=== PATIENT | female | born 1965 | race Caucasian/White ===

== ENCOUNTER → 2017-08-03 | Outpatient (CLI) | payer BC ==
[~2017-08-03] MED LIST: CYCL10TA9 PO; ETD300C PO; HYDR1TAB PO; LISI-552 PO; MELO15TA14 PO; METH4TAB PO
--- NOTE | 2017-08-06 22:01 | Diagnostic Imaging Report ---
Bilateral screening mammogram 2D views with tomosynthesis The current study was also evaluated with a Computer Aided Detection (CAD) system. Indication: Screening. No current complaints stated on the questionnaire. COMPARISON: 07/12/16. FINDINGS: The breasts are composed of scattered fibroglandular densities. There is no mass, architectural distortion or suspicious cluster of calcification. Allowing for technique and positional differences, no suspicious change is seen. IMPRESSION: No significant change. ACR BI-RADS Category 2: Benign findings. Result letter will be mailed to the patient. Note: At least 10% of breast cancer is not imaged by mammography. Dictated by: Dictated on workstation # [id number]
== END ==
LOC: RAD 08:21
PROVIDERS: ATTEND Registered Nurse
DX: Z12.31 Encounter for screening mammogram for malignant neoplasm of breast (principal)
CPT/HCPCS: 77067

== ENCOUNTER → 2019-08-08 | Outpatient (CLI) | payer BC ==
--- NOTE | 2019-08-11 09:35 | Diagnostic Imaging Report ---
INDICATION: Routine screening. Comparison is made with prior mammogram from 08/03/2017 and 07/12/2016. 2-D and 3-D bilateral screening mammography was performed with CAD. The current study was also evaluated with a Computer Aided Detection (CAD) system. 3-D tomosynthesis was also performed and reviewed. Scattered fibroglandular densities are identified bilaterally. The parenchymal pattern is stable. No spiculated mass or malignant appearing microcalcifications are seen. Axillae are unremarkable. IMPRESSION: No mammographic features suspicious for malignancy are identified. ACR BI-RADS Category 1: Negative. Result letter will be mailed to the patient. Note: At least 10% of breast cancer is not imaged by mammography. Dictated by: Dictated on workstation # [id number]
== END ==
LOC: RAD 09:19
PROVIDERS: ATTEND Registered Nurse
DX: Z12.31 Encounter for screening mammogram for malignant neoplasm of breast (principal)
CPT/HCPCS: 77067

== ENCOUNTER → 2020-05-31 | Outpatient (CLI) | payer BC ==
--- NOTE | 2020-05-31 14:52 | Diagnostic Imaging Report ---
PROCEDURE: MRI right joint lower extremity without contrast. TECHNIQUE: Multiplanar, multisequence non contrast-enhanced MRI of the right lower extremity was accomplished. INDICATION: Right ankle pain. COMPARISONS: None available. FINDINGS: TENDONS: The distal Achilles has moderate heterogeneous intensity thickening indicative of tendinopathy; however, there is no superimposed tear of the Achilles tendon and its distal insertion is intact. The peroneus longus and brevis tendons are normal. The posterior tibialis, flexor hallucis longus, and flexor digitorum longus are normal where visualized. LIGAMENTS: Anterior and posterior distal tibiofibular ligaments are intact. The anterior talofibular, calcaneofibular, and posterior talofibular ligaments are normal. Medial deltoid ligamentous complex is intact. Spring ligament is grossly intact. BONES AND CARTILAGE: No osteochondral lesion of the talar dome. No fracture or stress fracture. The articular cartilage of the tibiotalar and posterior subtalar joints are normal. Moderate degenerative changes at the navicular-cuneiform articulations with a prominent dorsal osteophyte arising from the navicular bone. SOFT TISSUES: No evidence of plantar fasciitis. No abnormal soft tissue scar/fibrosis within the tarsal canal/sinus tarsi or tarsal tunnel. No ankle joint effusion. A 12 x 9 mm cystic ganglion is located along the dorsal aspect of the navicular-cuneiform articulations. IMPRESSION: 1. Marked tendinopathy of the distal Achilles without superimposed tear. 2. 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 There is an associated 12 x 9 mm cystic ganglion along the dorsal aspect of the navicular-cuneiform articulations. Dictated by: Dictated on workstation # [id number]
== END ==
LOC: RAD 15:30
PROVIDERS: ATTEND Podiatrist Foot & Ankle Surgery
DX: M76.61 Achilles tendinitis, right leg (principal); M19.071 Primary osteoarthritis, right ankle and foot; M67.471 Ganglion, right ankle and foot
CPT/HCPCS: 73721

== ENCOUNTER → 2021-05-24 | Outpatient (CLI) | payer BC ==
[~2021-05-24] MED LIST changes: -LISI-552 PO; +LISI20TA26 PO
--- NOTE | 2021-05-24 10:21 | Diagnostic Imaging Report ---
INDICATION: Routine screening Comparison is made with prior mammogram 08/08/2019 and 08/03/2017. 2-D and 3-D bilateral screening mammography was performed with CAD. Scattered fibroglandular densities are identified bilaterally. Intraparenchymal lymph node in the outer left breast is stable. No mass or malignant-appearing microcalcifications are seen. Axillae are unremarkable. IMPRESSION: BI-RADS Category 2 No mammographic features suspicious for malignancy are identified. ACR BI-RADS Category 2: Benign findings. Result letter will be mailed to the patient. Note: At least 10% of breast cancer is not imaged by mammography. Dictated by: Dictated on workstation # [id number]
--- NOTE | 2021-05-24 12:16 | Diagnostic Imaging Report ---
INDICATION: 56-year-old postmenopausal female. COMPARISON: None FINDINGS: AP Spine L1-L4: [BMD (g/cm2): 1.002] [T-Score: -1.6] [Z-Score: -2.0] [BMD Previous: NA] [BMD % Change: NA] LT Hip Neck: [BMD (g/cm2): 0.859] [T-Score: -1.3] [Z-Score: -1.0] LT Hip Total: [BMD (g/cm2):0.854] [T-Score:-1.2] [Z-Score: -1.4] [BMD Previous: NA] [BMD % Change: NA] RT Hip Neck: [BMD (g/cm2):0.838] [T-Score:-1.4] [Z-Score:-1.2] RT Hip Total: [BMD (g/cm2):0.861] [T-score:-1.2] [Z-Score:-1.3] [BMD Previous:NA] [BMD % Change:NA] World Health Organization criteria for BMD interpretation classify patients as Normal (T-score at or above -1.0), Osteopenic (T-score between -1.0 and -2.5) or Osteoporotic (T-score at or below -2.5). LIMITATIONS AND MODIFICATION: None. FRACTURE RISK (FRAX SCORE): The ten year probability of (%): Major Osteoporotic Fracture: [5.4] Hip Fracture: [0.4] IMPRESSION: 1. Osteopenia (Low bone mass). 2. Baseline examination. 3. See below National Osteoporosis Foundation guidelines on when to potentially initiate pharmacologic therapy. Based on the National Osteoporosis Foundation Guidelines, pharmacologic treatment should be initiated in any of the following, unless clinical conditions suggest otherwise: * Any patient with prior fragility fracture of the hip or vertebrae. A spine fracture indicates 5X risk for subsequent spine fracture and 2X risk for subsequent hip fracture. * Osteoporosis (T-score <-2.5). * Postmenopausal women and men age 50 and older with low bone mass/osteopenia (T-score between -1.0 and -2.5) by DXA and 10-year major osteoporotic fracture greater than 20% or a 10-year probability of hip fracture greater than 3%. These fracture risks are supplied above in the FRAX score, if applicable. * Clinician judgement and/or patient preferences may indicate treatment for people with 10-year fracture probabilities above or below these levels. Dictated by: Dictated on workstation # [id number]
== END ==
LOC: RAD 09:00
PROVIDERS: ATTEND Obstetrics & Gynecology
DX: Z12.31 Encounter for screening mammogram for malignant neoplasm of breast (principal); Z13.820 Encounter for screening for osteoporosis; M85.89 Other specified disorders of bone density and structure, multiple sites
CPT/HCPCS: 77063; 77067; 77080

== ENCOUNTER 2021-08-23 05:40 | Outpatient (RCR) | payer BC ==
[~2021-08-23] VITALS: Ht 162.6 cm; Wt 126.5 kg
[2021-08-24] MEDS ORDERED: ROSU20TA32 PO (14:06)
[2021-08-24] MEDS ORDERED: ESTR42.511 VG (14:06)
== END 2021-08-24 14:27 | disposition home or self-care (01) ==
LOC: PREOP 05:40 → EDSTATUS 10:15 → PREOP 08-24 14:27
PROVIDERS: ATTEND Surgery
DX: Z01.818 Encounter for other preprocedural examination (principal)

== ENCOUNTER 2021-08-30 09:55 | Day surgery (SDC) | payer BC ==
[~2021-08-30] VITALS: Ht 163 cm; Wt 126.5 kg
[~2021-08-30 09:55] MED LIST changes: +ESTR42.511 VG; +ROSU20TA32 PO
[2021-08-30] MEDS ORDERED: LACTATED RINGERS 1,000 ML IV ONE (10:00)
[2021-08-30] MEDS ORDERED: LACTATED RINGERS 1,000 ML IV STA (10:03)
[2021-08-30] MEDS ORDERED: HURRICAINE EXT TUBE (BENZOCAINE) XX PRN (10:15)
[2021-08-30 10:23] VITALS: BP 142/79
[2021-08-30] MEDS ORDERED: PROPOFOL INJECTION 50 ML IV ONE ×2 (10:55→11:06)
[2021-08-30] MEDS ORDERED: MIDAZOLAM 2 MG/2 ML (VERSED) VIAL ONE (10:55)
[2021-08-30] MEDS ORDERED: PANT40TA2 PO (11:37)
--- NOTE | 2021-08-30 11:39 | Discharge Inst-Simple/Standard ---
Discharge Inst-Standard Discharge Medications New, Converted or Re-Newed RX: Transmitted to Pharmacy Patient Instructions/Follow Up Plan of Care/Instructions/FU: 2 weeks Joan Activity as Tolerated: Yes Discharge Diet: Regular Diet Other Inst to Patient high fiber PRASANNA NORTH DO Aug 30, 2021 11:39
[2021-08-30 11:40] VITALS: BP 109/53
--- NOTE | 2021-08-30 11:44 | Progress Note-Post Operative ---
Post-Operative Progess Note Surgeon (s)/Oil Seal Assembler (s) Surgeon PRASANNA NORTH DO Oil Seal Assembler: na Pre-Operative Diagnosis family history colon cancer, gerd Post-Operative Diagnosis small hiatal hernia, reflux esophagitis, Procedure & Operative Findings Date of Procedure 08/30/21 Procedure Performed/Findings egd c biopsies, colonoscopy c hot bx polypectomy x 3 Anesthesia Type per accounts specialist Estimated Blood Loss Estimated blood loss (mL): none Specimens/Packing Specimens Removed antrum, ge, colon polyps PRASANNA NORTH DO Aug 30, 2021 11:44
[2021-08-30 11:45] VITALS: BP 108/68
[2021-08-30 12:10] VITALS: BP 133/92
[2021-08-30 12:19] VITALS: BP 133/92
--- NOTE | 2021-08-30 14:53 | Anesthesia-General Post-Op ---
MAC Patient Condition Mental Status/LOC: Same as Preop Cardiovascular: Satisfactory Nausea/Vomiting: Absent Respiratory: Satisfactory Pain: Controlled Complications: Absent Post Op Complications Complications None Follow Up Care/Instructions Patient Instructions None needed. Anesthesiology Discharge Order Discharge Order Patient is doing well, no complaints, stable vital signs, no apparent adverse anesthesia problems. No complications reported per nursing. DENYS KNOX CRNA Aug 30, 2021 14:53
--- NOTE | 2021-08-31 00:09 | OPERATIVE REPORT ---
DATE OF SERVICE: 08/30/2021 PREOPERATIVE DIAGNOSES: Gastroesophageal reflux disease and family history of colon cancer. POSTOPERATIVE DIAGNOSES: Small hiatal hernia, reflux esophagitis, colon polyps, diverticulosis. PROCEDURE: EGD with biopsies, colonoscopy with hot biopsy polypectomy x3. SURGEON: Prasanna Franco DO ANESTHESIA: Per BEE PRODUCER. ESTIMATED BLOOD LOSS: None. COMPLICATIONS: None. INDICATIONS: The patient is a 56-year-old female needing screening colonoscopy, family history of colon cancer and also with GERD symptoms. She understands risks and benefits of procedure and wishes to proceed. Consent was signed in the chart. DESCRIPTION OF PROCEDURE: The patient was taken to the endoscopy suite, placed in left recumbent position. Timeout was performed. Scope was inserted in mouth, down the esophagus, stomach and into the duodenum without difficulty. No polyps, masses or ulcerations within the duodenum. Scope was slowly retracted back to stomach where it was further insufflated. No polyps, masses or ulcerations in the antrum. A small biopsy of the antrum was obtained. In the body of the stomach, a few small benign-appearing polyps. Scope was retroflexed noting a small hiatal hernia, no other pathology. Scope was returned to its normal position, slowly withdrawn to distal esophagus, changes of reflux esophagitis present. A biopsy of the GE junction was obtained. Scope was slowly retracted back until completely removed. The patient tolerated procedure well. Digital rectal exam was performed. No palpable polyps, masses or ulcerations. Scope was inserted in the rectum and advanced all the way to cecum with minimal difficulty. At the appendiceal opening, small polyp was present, which hot biopsy polypectomy was performed. Scope was then continuously retracted back. There were no polyps, masses or ulcerations in the cecum, ascending and transverse colon. In the descending colon, two small polyps were present, which hot biopsy polypectomy was performed. Scope was then continuously retracted back noting diverticulosis of the sigmoid colon. No other polyps, masses or ulcerations. Scope was continuously retracted back into the rectum where it was retroflexed noting no other pathology. Scope was returned to its normal position, slowly withdrawn until completely removed. The patient tolerated procedure well without any complications. She was taken to recovery room in stable condition. RECOMMENDATIONS: The patient will need repeat colonoscopy in 5 years. The patient will be started on Protonix 40 mg daily. The patient would recommend high fiber diet due to diverticulosis. Any problems before 5 years, she should be reevaluated at that time for colonoscopy. CC: Deidre Darling - requested, unable to deliver. Job ID: [id number] DocumentID: [id number] Dictated Date: 08/30/2021 11:47:05 Environmental Advisor Date: 08/30/2021 17:37:48 Dictated By: PRASANNA FRANCO DO
== END 2021-08-30 12:50 | disposition home or self-care (01) ==
LOC: ENDO 09:55
PROVIDERS: ATTEND Surgery
DX: Z12.11 Encounter for screening for malignant neoplasm of colon (principal); D12.4 Benign neoplasm of descending colon; K21.00 Gastro-esophageal reflux disease with esophagitis, without bleeding; K44.9 Diaphragmatic hernia without obstruction or gangrene; K57.30 Diverticulosis of large intestine without perforation or abscess without bleeding; I10 Essential (primary) hypertension; E66.01 Morbid (severe) obesity due to excess calories; Z68.42 Body mass index [BMI] 45.0-49.9, adult; Z80.0 Family history of malignant neoplasm of digestive organs; Z79.899 Other long term (current) drug therapy

== ENCOUNTER → 2022-07-21 | Outpatient (CLI) | payer BC ==
[~2022-07-21] MED LIST changes: +PANT40TA2 PO
--- NOTE | 2022-07-21 16:13 | Diagnostic Imaging Report ---
INDICATION: Routine screening. COMPARISON: Prior mammograms from 05/24/2021 and 08/08/2019. EXAMINATION: 2D and 3D bilateral screening mammography was performed with CAD. The current study was also evaluated with a Computer Aided Detection (CAD) system. FINDINGS: Scattered fibroglandular densities are identified bilaterally. Intraparenchymal lymph node in outer left breast appears stable. No spiculated mass or malignant-appearing microcalcifications are seen. Axillae are unremarkable. IMPRESSION: No mammographic features suspicious for malignancy are identified. ACR BI-RADS Category 2: Benign findings. Result letter will be mailed to the patient. Note: At least 10% of breast cancer is not imaged by mammography. Dictated by: Dictated on workstation # [id number]
== END ==
LOC: RAD 14:45
PROVIDERS: ATTEND Nurse Practitioner Family
DX: Z12.31 Encounter for screening mammogram for malignant neoplasm of breast (principal)
CPT/HCPCS: 77063; 77067

== ENCOUNTER 2023-04-29 18:57 | Emergency (ER) | payer OTHER ==
[~2023-04-29] VITALS: Ht 160 cm; Wt 129.3 kg
[~2023-04-29 18:57] MED LIST changes: -ROSU20TA32 PO; +ROSU20TA73 PO
[2023-04-29 19:23] VITALS: BP 138/74
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
[2023-04-29 21:40] LABS: BASOPHILS # (AUTO) 0.1 10^3/uL (0.0-0.1); BASOPHILS % (AUTO) 1 % (0-10); EOSINOPHILS # (AUTO) 0.2 10^3/uL (0.0-0.3); EOSINOPHILS % (AUTO) 2 % (0-10); HEMATOCRIT 42 % (35-52); HEMOGLOBIN 13.8 g/dL (11.5-16.0); LYMPHOCYTES # (AUTO) 3.1 10^3/uL (1.0-4.0); LYMPHOCYTES % (AUTO) 36 % (12-44); MEAN CORPUSCULAR HEMOGLOBIN 28 pg (25-34); MEAN CORPUSCULAR HGB CONC 33 g/dL (32-36); MEAN CORPUSCULAR VOLUME 86 fL (80-99); MEAN PLATELET VOLUME 10.1 fL (9.0-12.2); MONOCYTES # (AUTO) 0.7 10^3/uL (0.0-1.0); MONOCYTES % (AUTO) 7 % (0-12); NEUTROPHILS # (AUTO) 4.7 10^3/uL (1.8-7.8); NEUTROPHILS % (AUTO) 54 % (42-75); PLATELET COUNT 291 10^3/uL (130-400); WHITE BLOOD COUNT 8.8 10^3/uL (4.3-11.0)
[2023-04-29 21:56] LABS: POTASSIUM 3.8 MMOL/L (3.6-5.0)
[2023-04-29 21:57] LABS: CALCIUM 9.3 MG/DL (8.5-10.1)
[2023-04-29 22:01] LABS: CREATININE SERUM 0.78 MG/DL (0.60-1.30)
[2023-04-29] MEDS ORDERED: CEFD300C3 PO (22:34)
[2023-04-29] MEDS ORDERED: SULF1TAB38 PO (22:34)
[2023-04-29] MEDS ORDERED: CEFDINIR 300 MG CAPSULE PO ONE (22:45)
[2023-04-29] MEDS ORDERED: TRIM/SULFAMETH 160/800 (SEPTRA DS) TAB PO ONE (22:45)
== END 2023-04-29 22:50 | disposition home or self-care (01) ==
LOC: EDUNIT# 18:57 → ER 19:01
DX: S89.91XA Unspecified injury of right lower leg, initial encounter (principal); I80.01 Phlebitis and thrombophlebitis of superficial vessels of right lower extremity; Z79.01 Long term (current) use of anticoagulants; W55.22XA Struck by cow, initial encounter
CPT/HCPCS: 36415; 80048; 85025; 86141

== ENCOUNTER → 2023-07-26 | Outpatient (CLI) | payer OTHER ==
[~2023-07-26] MED LIST changes: +CEFD300C3 PO; +SULF1TAB38 PO
--- NOTE | 2023-07-26 18:10 | Diagnostic Imaging Report ---
INDICATION: Routine screening. COMPARISON: Prior mammograms from 07/21/2022 and 05/24/2021. EXAMINATION: 2D and 3D bilateral screening mammography was performed with CAD. The current study was also evaluated with a Computer Aided Detection (CAD) system. FINDINGS: Scattered fibroglandular densities are identified, bilaterally. The parenchymal pattern is stable. No mass or malignant-appearing microcalcifications are seen. Axillae are unremarkable. IMPRESSION: No mammographic features suspicious for malignancy are identified. ACR BI-RADS Category 1: Negative. Result letter will be mailed to the patient. Note: At least 10% of breast cancer is not imaged by mammography. Dictated by: Dictated on workstation # [id number]
== END ==
LOC: RAD 15:13
PROVIDERS: ATTEND Physician Assistant
DX: Z12.31 Encounter for screening mammogram for malignant neoplasm of breast (principal)
CPT/HCPCS: 77063; 77067